=== PATIENT | male | born 1980 | race Caucasian/White ===

== ENCOUNTER → 2018-01-02 09:42 | Outpatient (CLI) | payer OTHER, SELFPAY ==
--- NOTE | 2018-01-02 | DI.MRI.S_ITS ---
PROCEDURE: MR SHOULDER RT WO CON INDICATIONS: SUPERIOR GLENOID LABRUM LESION TECHNIQUE: Noncontrast oblique coronal T2 fast spin echo with fat saturation, oblique sagittal T1 spin echo and T2 fast spin echo with fat saturation, axial T1 spin echo and T2 fast spin echo with fat saturation through the shoulder. COMPARISON: [facility], RF, SHOULDER INJECTION FOR MR/CT, 12/09/2016, 14:23. [facility], MR, SHOULDER WITH CONTRAST, 12/09/2016, 14:58. FINDINGS: Image quality: Excellent. Rotator cuff: There is partial-thickness tear of the supraspinatus tendon involving the articular surface. The infraspinatus and subscapularis tendons appear intact throughout. Sagittal images demonstrate no muscle atrophy. Bones and bursae: No bone marrow contusions or fractures. Subchondral cyst formation in humeral head. There is moderate severe glenohumeral joint degeneration and mild acromioclavicular joint degeneration. The acromion demonstrates conventional anatomy, without an os acromiale. There is subcoracoid bursal fluid consistent with bursitis. Capsule and soft tissues: In the absence of intra-articular contrast, postsurgical changes are noted involving the superior labrum and anterior labrum. The posterior labrum is irregular with parelabral cyst, which are new. The glenohumeral ligaments appear intact. The long head of the biceps tendon demonstrates normal location and morphology. The rotator interval appears normal, without fibrosis. The coracohumeral ligament is normal in thickness. IMPRESSION: 1. Partial-thickness tear of the supraspinatus tendon involving the articular surface. 2. Postsurgical changes involving the superior labrum and anterior labrum. 3. Irregular posterior labrum with paralabral cysts, consistent with degenerative tear. 4. Moderate to severe glenohumeral joint degeneration, consistent with secondary osteoarthritis. 5. Mild acromioclavicular joint degeneration. 6. Subcoracoid bursal fluid consistent with bursitis. Dictated by: Papi Villalobos M.D. on 01/02/2018 at 10:21 Approved by: Papi Villalobos M.D. on 01/02/2018 at 15:20
== END ==
PROVIDERS: PCP Physician Assistant Medical; Visit Provider Orthopaedic Surgery
DX: S43.431A Superior glenoid labrum lesion of right shoulder, initial encounter (principal); M75.111 Incomplete rotator cuff tear or rupture of right shoulder, not specified as traumatic; M19.211 Secondary osteoarthritis, right shoulder; M75.51 Bursitis of right shoulder
CPT/HCPCS: 73221

== ENCOUNTER 2018-11-11 12:05 | Day surgery (SDC) | payer OTHER, SELFPAY ==
--- NOTE | 2018-11-11 | PATH_ITS ---
[facility] Accession Number: [id number] . 01 Material submitted: . colon - POLYP AT 30 . 01 Clinical history: . COLONOSCOPY W/POSS BX . 02 Diagnosis: Biopsy, Colon Polyp at 30 cm: Tubular adenoma involving both biopsy fragments. MRV/11/12/2018 . 02 Electronically signed: . Bc Ayala MD, Pathologist NPI- [id number] . 01 Gross description: . POLYP AT 30: Received in formalin are 2 fragment(s) of dahl, soft tissue measuring 0.2 x 0.2 x 0.2 cm to 0.3 x 0.2 x 0.2 cm which is entirely submitted and submitted entirely in 1 cassette(s) /DMC /DM . 02 Pathologist provided ICD-10: D12.5 . 02 CPT . 426905 Performed at: 01 [facility] [address], [place], [place] [id number] MD Abraham Pedraza MD Phone: [phone] Performed at: 02 [facility] [address] [place], [place] [id number] MD Sylvie Alan MD Phone: [phone]
[2018-11-11] MEDS: SODIUM CHLORIDE 0.9% 1,000 ML 50 ML IV (12:39)
[2018-11-11 12:51] VITALS: BP 124/82; PULSE 79; RESP 16; TEMP 36.6; O2SAT 97; BMI 28.8
--- NOTE | 2018-11-11 13:07 | PM.OP.ENDO ---
Operative Date/Time/Diagnoses Pre-op diagnosis: See indication and findings Procedure & Clinicians Study performed: Colonoscopy Same procedure as scheduled: Yes Indications: Screening Surgeon: Alvaro Pradhan Procedure Notes Procedure in detail: After informed consent was obtained the patient was placed in left lateral decubitus position. The video colonoscope was into the rectum and slowly advanced to the cecum. On slow withdrawal mucosa was carefully examined. The scope was removed. The patient tolerated procedure well. Preparation was excellent Blood loss none Complications none Sedation Total sedation time 19 minutes Versed 6 mg fentanyl 150 micro g IV titration Findings 1. 8 mm semi pedunculated polyp at 30 cm cold snared and removed incompletely. A Jumbo biopsy forceps was used to remove the remainder of polyp. 2. Otherwise negative colonoscopy to cecum including retroflexed view in the rectum Regardless of the outcome of the pathology which will almost certainly be adenomatous he will need follow-up colonoscopy in 5 years due to his strong family history.
--- NOTE | 2018-11-11 13:46 | PM.HP.1 ---
History of Present Illness Date Patient Seen: 11/11/18 Time Patient Seen: 13:46 Chief complaint: [id number] COLONOSCOPY W/POSS BX Narrative: Family history of rectal cancer in his mother at age 50. This the 1st screening colonoscopy. Patient History Social History household members: significant other Family & Social History Social History: household members significant other Meds Home Medications Medication Instructions Recorded Confirmed Type ciprofloxacin 500 mg PO BID 11/11/18 11/11/18 History Allergies Allergy/AdvReac Type Severity Reaction Status Date / Time codeine AdvReac Intermediate Verified 11/11/18 12:44 Exam Vital Signs (past 8 hours): - 11/11/18 12:51 Temperature 97.8 F Pulse Rate 79 Respiratory Rate 16 Blood Pressure 124/82 Pulse Oximetry 97 Oxygen Delivery Method Room Air Narrative Exam Narrative: Oropharynx free of lesions Chest clear to auscultation percussion Cardiac exam reveals no S3 or murmur Assessment & Plan Assessment & Plan narrative: First-degree family member with rectal cancer at a young age. Need for screening colonoscopy. Risks, benefits, alternatives have been explained.
[2018-11-11] MEDS: fentaNYL 250 MCG/5 ML INJ IV (14:36)
[2018-11-11] MEDS: MIDAZOLAM 5 MG/5 ML VIAL IV (14:37)
[2018-11-11 14:53] VITALS: BP 127/63; PULSE 78; RESP 15; TEMP 36.2; O2SAT 96
[2018-11-11 14:58] VITALS: BP 112/84; PULSE 80; RESP 17; O2SAT 98
[2018-11-11 15:12] VITALS: BP 114/74; PULSE 78; RESP 16; TEMP 36.8; O2SAT 97
== END 2018-11-11 15:30 | disposition home or self-care (01) ==
LOC: ENDO 12:06
PROVIDERS: PCP Nurse Practitioner Family; Visit Provider Internal Medicine Gastroenterology
PROC: 0DJD8ZZ Inspection of Lower Intestinal Tract, Via Natural or Artificial Opening Endoscopic (ICD-10-PCS; CPT 45378; principal; 2018-11-11 13:30)
DX: Z12.11 Encounter for screening for malignant neoplasm of colon (principal); Z80.0 Family history of malignant neoplasm of digestive organs; D12.5 Benign neoplasm of sigmoid colon
CPT/HCPCS: 45385; 88305; J2250; J3010